=== PATIENT | female | born 1945 | race Two or more races ===

== ENCOUNTER 2021-07-21 08:49 | Outpatient (CLI) | payer OTHER | END 2021-07-21 08:50 | disposition home or self-care (01) | LOC: NUCLEAR 08:49 | PROVIDERS: ATTEND Internal Medicine Pulmonary Disease | DX: I26.99 Other pulmonary embolism without acute cor pulmonale (principal); I27.82 Chronic pulmonary embolism | CPT/HCPCS: 78582; A9540 ==

== ENCOUNTER → 2021-07-21 | Outpatient (CLI) | payer OTHER | END | disposition home or self-care (01) | LOC: RAD 10:24 | DX: M75.32 Calcific tendinitis of left shoulder (principal); M75.31 Calcific tendinitis of right shoulder; M25.511 Pain in right shoulder; M25.512 Pain in left shoulder; M54.2 Cervicalgia ==